=== PATIENT | male | born 1995 | race Caucasian/White ===

== ENCOUNTER → 2020-12-25 | Outpatient (CLI) | payer OTHER, SELFPAY | END | disposition home or self-care (01) | LOC: LABSPEC 10:38 | PROVIDERS: Referring Provider Physician Assistant Surgical; Visit Provider Physician Assistant Surgical | DX: Z20.822 Contact with and (suspected) exposure to COVID-19 (principal) | CPT/HCPCS: 87635; U0005; U0003 ==

== ENCOUNTER → 2023-06-29 | Outpatient (CLI) | payer OTHER, SELFPAY ==
--- NOTE | 2023-06-29 | VAS_PTH ---
PATIENT: ALBERTA PLATT [facility]: [facility] U#:[id number] AGE/SX: 27/M ROOM: RE06/29/[address]: Dr. Jonn Yi MD : 1995 BED: DIS: 06/29/2023 SPEC #: [id number] RECD: 06/29/23 15:23 STATUS: SHEYLA RECely #: [id number] AVA: 06/29/23 00:[address]: Jonn Yi DEPT: SURGICAL PATHOLOGY RECD BY: Yvrose Flanagan ENTERED: 06/30/23 08:47 SP TYPE: VAS OTHR DR: Dr. Rick Abdul, Tissues: A - Vas deferens, NOS B - Vas deferens, NOS Procedures: Surgery Specimen Level II HEADER OPERATION: Bilateral partial vasectomy PRE-OP DIAGNOSIS: Sterilization TISSUE SUBMITTED: A- Right vas deferens, B- Left vas deferens MICROSCOPIC DIAGNOSIS A. Right vas deferens, partial vasectomy: Completely transected segment of vas deferens, no pathologic diagnosis. B. Left vas deferens, partial vasectomy: Completely transected segment of vas deferens, no pathologic diagnosis. WINSTON: 07/03/23 MICROSCOPIC DESCRIPTION Slides are reviewed. GROSS DESCRIPTION A - Received is one container designated Right vas deferens. The specimen consists of a tubular segment of mcneill soft tissue measuring 0.9 cm in length and 0.2 cm in diameter. The specimen is sectioned and submitted entirely in one cassette. B - Received is one container designated Left vas deferens. The specimen consists of a tubular segment of mcneill soft tissue measuring 0.8 cm in length and 0.3 cm in diameter. The specimen is sectioned and submitted entirely in one cassette. / SJ: 06/30/2023 TC:4 [facility]: [id number] [phone]
== END | disposition home or self-care (01) ==
LOC: LABSPEC 15:25
PROVIDERS: PCP Student in an Organized Health Care Education/Training Program; Referring Provider Surgery; Visit Provider Surgery
DX: Z30.2 Encounter for sterilization (principal)
CPT/HCPCS: 88302

== ENCOUNTER → 2023-08-09 | Outpatient (CLI) | payer OTHER, SELFPAY ==
--- NOTE | 2023-08-09 | CYSPIN_PTH ---
PATIENT: ALBERTA PLATT LOC: LAB U#:[id number] AGE/SX: 27/M ROOM: RE08/09/[address]: Dr. Jonn Yi MD : 1995 BED: DIS: 08/09/2023 SPEC #: [id number] RECD: 08/09/23 08:09 STATUS: SHEYLA BRIDGET #: [id number] AVA: 08/09/23 00:[address]: Jonn Yi DEPT: CYTOLOGY RECD BY: Yvrose Flanagan ENTERED: 08/09/23 09:45 SP TYPE: CYSPIN FL OTHR DR: Dr. Rick Abdul, Tissues: Cytologic material, NOS Procedures: Pap Stain (control) Special Stain Group II Cytospin Fluid HEADER OPERATION: Post vasectomy PRE-OP DIAGNOSIS: Post vasectomy status TISSUE SUBMITTED: Seminal fluid DIAGNOSIS CYTOLOGY Seminal fluid for analysis (cytospin): Spermatozoa are present. AM/mr 08/09/23 CYTOLOGY STUDY Slides are reviewed. CYTOLOGY GROSS Received is 5 ml of thick cloudy fluid labeled with the patient's name and and designated per the requisition as Seminal fluid. Submitted for cytology preparation including cell block. Mr 08/09/2023 TC:5 CPT: 12944
== END | disposition home or self-care (01) ==
LOC: LAB 07:58
PROVIDERS: PCP Student in an Organized Health Care Education/Training Program; Referring Provider Surgery; Visit Provider Surgery
DX: Z30.2 Encounter for sterilization (principal)
CPT/HCPCS: 88108; 88313

== ENCOUNTER → 2023-09-01 | Outpatient (CLI) | payer OTHER, SELFPAY ==
--- NOTE | 2023-08-31 20:00 | CYSPIN_PTH ---
PATIENT: ALBERTA PLATT LOC: LAB U#:[id number] AGE/SX: 27/M ROOM: RE09/01/[address]: Dr. Rick Abdul DO : 1995 BED: DIS: 09/01/2023 SPEC #: [id number] RECD: 09/01/23 10:51 STATUS: SHEYLA BRIDGET #: [id number] AVA: 08/31/23 20:[address]: Rick Abdul DEPT: CYTOLOGY RECD BY: Yvrose Flanagan ENTERED: 09/01/23 10:52 SP TYPE: CYSPIN FL OTHR DR: Dr. Jonn Yi MD Tissues: Urine Procedures: Pap Stain (control) Special Stain Group II Cytospin Fluid HEADER OPERATION: Post vasectomy PRE-OP DIAGNOSIS: Post vasectomy status TISSUE SUBMITTED: Seminal fluid DIAGNOSIS CYTOLOGY Seminal fluid for cytology (cytospin): No spermatozoa identified. AM/mr 09/01/2023 CYTOLOGY STUDY Slides are reviewed. CYTOLOGY GROSS Received is 5 ml of thick-cloudy fluid labeled with the patient's name and and designated per the requisition as Seminal fluid. Submitted for cytology preparation including cell block. Mr 09/01/2023 TC:5 CPT: 20878
[2023-09-01 06:58] LABS: Cytology, Semen SEE PATHOLOGY REPORT
[2023-09-01 07:19] LABS: Absolute Lymphocyte Count 1.63 X10^3/uL (0.83-4.51); Basophil# 0.03 X10^3/uL; Basophil% 0.7 % (0-1); Eosinophil# 0.17 X10^3/uL; Hematocrit 44.8 % (40-54); Hemoglobin 15.4 g/dL (13.0-16.5); Lymphocyte # 1.63 X10^3/ul (0.83-4.51); Lymphocyte % 38.4 % (19-41); Mean Corp Hgb Conc 34.4 g/dL (32-36); Mean Corpuscular Hgb 29.8 pg (27.0-32.0); Mean Corpuscular Volume 86.7 fL (80-94); Mean Platelet Vol. 9.9 fl (6.2-12.0); Monocyte# 0.43 X10^3/uL; Monocyte% 10.1 % (0-10); NRBC Flagged by Analyzer 0 % (0-5); Neutrophil # 1.97 X10^3/uL (2.7-7.7); Neutrophil % 46.6 % (47-70); Platelet Count 262 K/mm3 (150-450); RBC Distribution Width SD 38.3 fl (35.1-43.9); Red Blood Count 5.17 M/mm3 (4.6-6.2); White Blood Count 4.2 K/mm3 (4.4-11.0)
[2023-09-01 07:56] LABS: Cholesterol 194 mg/dL (200); High Density Lipoprotein 44 mg/dL; Thyroid Stim Hormone (TSH) 0.85 uIU/mL (0.358-3.74); Triglycerides 105 mg/dL; Very Low Density Lipoprotein 21 mg/dL (5-40)
[2023-09-01 13:39] LABS: Vitamin B12 625 pg/mL (211-911)
== END | disposition home or self-care (01) ==
PROVIDERS: PCP Student in an Organized Health Care Education/Training Program; Visit Provider Student in an Organized Health Care Education/Training Program
DX: Z00.00 Encounter for general adult medical examination without abnormal findings (principal)
CPT/HCPCS: 36415; 80061; 82607; 84443; 85025; 88108; 88313

== ENCOUNTER → 2023-10-07 | Outpatient (CLI) | payer OTHER, SELFPAY ==
--- NOTE | 2023-10-07 | CYSPIN_PTH ---
PATIENT: ALBERTA PLATT LOC: [facility] U#:[id number] AGE/SX: 27/M ROOM: RE10/07/[address]: Dr. Rick Abdul DO : 1995 BED: DIS: 10/07/2023 SPEC #: [id number] RECD: 10/07/23 09:29 STATUS: SHEYLA BRIDGET #: [id number] AVA: 10/07/23 00:[address]: Jonn Yi DEPT: CYTOLOGY RECD BY: Adamaris Little ENTERED: 10/09/23 07:37 SP TYPE: CYSPIN FL OTHR DR: Dr. Rick Abdul DO Tissues: Cytologic material, NOS Procedures: Pap Stain (control) Special Stain Group II Cytospin Fluid HEADER OPERATION: Post vasectomy PRE-OP DIAGNOSIS: Post vasectomy status TISSUE SUBMITTED: Seminal fluid DIAGNOSIS CYTOLOGY Seminal fluid for cytology (cytospin): No spermatozoa identified. AM/mr 10/09/2023 CYTOLOGY STUDY Slides are reviewed. CYTOLOGY GROSS Received is 10 ml of thick opaque-cloudy fluid labeled with the patient's name and and designated per the requisition as Seminal fluid. Submitted for cytology preparation including cell block. Mr 10/09/2023 TC:5 CPT: 48424
[2023-10-07 09:30] LABS: Cytology, Semen SEE PATHOLOGY REPORT
[2023-10-07 09:40] LABS: Absolute Lymphocyte Count 1.78 X10^3/uL (0.83-4.51); Absolute Neutrophil Count 2.5 X10^3/uL (2.0-7.7); Basophil# 0.04 X10^3/uL; Basophil% 0.8 % (0-1); Eosinophil# 0.14 X10^3/uL; Eosinophils% 2.8 % (0-5); Hematocrit 45.8 % (40-54); Hemoglobin 15.7 g/dL (13.0-16.5); Lymphocyte # 1.78 X10^3/ul (0.83-4.51); Lymphocyte % 35.1 % (19-41); Mean Corp Hgb Conc 34.3 g/dL (32-36); Mean Corpuscular Hgb 29.6 pg (27.0-32.0); Mean Corpuscular Volume 86.3 fL (80-94); Mean Platelet Vol. 9.6 fl (6.2-12.0); Monocyte# 0.58 X10^3/uL; Monocyte% 11.4 % (0-10); NRBC Flagged by Analyzer 0 % (0-5); Neutrophil # 2.51 X10^3/uL (2.7-7.7); Neutrophil % 49.5 % (47-70); Platelet Count 277 K/mm3 (150-450); RBC Distribution Width CV 12.1 % (11.6-14.6); RBC Distribution Width SD 38.1 fl (35.1-43.9); Red Blood Count 5.31 M/mm3 (4.6-6.2); White Blood Count 5.1 K/mm3 (4.4-11.0)
== END | disposition home or self-care (01) ==
LOC: LAB 09:25
PROVIDERS: Surgery; PCP Student in an Organized Health Care Education/Training Program; Referring Provider Student in an Organized Health Care Education/Training Program; Visit Provider Student in an Organized Health Care Education/Training Program
DX: Z30.2 Encounter for sterilization (principal); D72.819 Decreased white blood cell count, unspecified; Z98.52 Vasectomy status
CPT/HCPCS: 36415; 85025; 88108; 88313

== ENCOUNTER → 2023-11-25 | Outpatient (CLI) | payer OTHER, SELFPAY ==
--- NOTE | 2023-11-25 | CYSPIN_PTH ---
PATIENT: ALBERTA PLATT [facility] U#:[id number] AGE/SX: 28/M ROOM: RE11/25/[address]: Dr. Jonn Yi MD : 1995 BED: DIS: 11/25/2023 SPEC #: [id number] RECD: 11/27/23 07:42 STATUS: SHEYLA BRIDGET #: [id number] AVA: 11/25/23 00:[address]: Jonn Yi DEPT: CYTOLOGY RECD BY: Yvrose Flanagan ENTERED: 11/27/23 07:42 SP TYPE: CYSPIN FL OTHR DR: Dr. Rick Abdul, DO Tissues: Cytologic material, NOS Procedures: Pap Stain (control) Special Stain Group II Cytospin Fluid HEADER OPERATION: Post vasectomy PRE-OP DIAGNOSIS: Post vasectomy status TISSUE SUBMITTED: Seminal fluid for cytology DIAGNOSIS CYTOLOGY Seminal fluid for cytology (cytospin): No spermatozoa identified. AM/mr 11/27/2023 CYTOLOGY STUDY Slides are reviewed. CYTOLOGY GROSS Received is 10 ml of mcneill-mucoidy fluid labeled with the patient's name and and designated per the requisition as Seminal fluid. Submitted for cytology preparation including cell block. Mr 11/27/2023 TC:5 CPT: 06128
[2023-11-25 08:11] LABS: Cytology, Semen SEE PATHOLOGY REPORT
== END | disposition home or self-care (01) ==
LOC: LABSPEC 08:10
PROVIDERS: PCP Student in an Organized Health Care Education/Training Program; Visit Provider Surgery
DX: Z30.2 Encounter for sterilization (principal)
CPT/HCPCS: 88108; 88313